=== PATIENT | female | born 1985 | race Caucasian/White ===

== ENCOUNTER 2018-08-10 15:55 | Inpatient (IN) | payer OTHER ==
[2018-08-10 17:02] VITALS: BMI 28.6
[2018-08-10] MEDS ORDERED: Lactated Ringer's 1,000 ML IV ONE ×3 (17:20→20:10)
[2018-08-10] MEDS ORDERED: OXYTOCIN/0.9 % NS 20 UNIT/1,000 ML BAG IV ONE (17:22)
[2018-08-10] MEDS ORDERED: Oxytocin 30 UNIT in NS 500 ml 30 UNITS/500 ML BAG IV ONE ×2 (17:45→19:19)
[2018-08-10 18:19] LABS: BASO % 0.1 % (0.0-2.0); EOS % 0.3 % (0.0-4.0); HEMOGLOBIN 10.8 g/dL (12.0-16.0); LYMPH # 1.3 K/uL (1.0-4.3); LYMPH % 23.4 % (20.0-40.0); MEAN CELL VOLUME 82.7 fl (81.0-99.0); MEAN CORPUSCULAR HGB CONC 32.7 g/dL (33.0-37.0); MEAN PLATELET VOLUME 8.7 fl (7.2-11.7); MONO # 0.5 K/uL (0.0-0.8); MONO % 9.4 % (0.0-10.0); NEUT # 3.7 K/uL (1.8-7.0); NEUT % 66.8 % (50.0-75.0); NRBC % 0.1 % (0.0-0.0); RED CELL DISTRIBUTION WIDTH 16.3 % (11.5-14.5); WHITE BLOOD COUNT 5.5 K/uL (4.8-10.8)
[2018-08-10] MEDS ORDERED: Fentanyl/Bupivacaine HCl 250 ML EPI ONE (20:12)
[2018-08-10] MEDS ORDERED: Bupivacaine HCl 0.5% PF (30 ml) Inj ONE (20:28)
--- NOTE | 2018-08-10 22:58 | OBPN ---
Datetime: 08/10/2018 22:48 IP Progress Impression: Normal progression of labor; Reassuring heart rate IP Procedures: Artificial ROM; Sterile Vag Exam IP Progress Plan: Continue present management; Augmentation Membranes, Provider: Intact Amniotic Fluid Color, Provider: Clear FHR - Baseline A Provider: 120 Gestation - Est Wks by US: 40.6 Presentation-Admit: Vertex IP Progress Note Comment: Patient is s/p epidural and is comfortable Membranes ruptured artificially with clear fluid. Plan: Will augment with Pitocin Monitor the progress of labor. Vital Signs Provider: Reviewed NICHD Accel Fetus A IP Provider: [id number] FHR Category Provider Fetus A: Category I NICHD Variability Prov Fetus A: Moderate 6-25bpm Dilatation, Provider: 4 Effacement, Provider: 60 Station, Provider: -2 NICHD Decel Fetus A IP Provider: None
[2018-08-11] MEDS ORDERED: Lidocaine Hydrochloride 10 ML INJ ONE ×2 (02:11→09:12)
[2018-08-11] MEDS ORDERED: Lactated Ringer's 1,000 ML IV ONE (06:31)
[2018-08-11] MEDS ORDERED: Benzocaine/Menthol SPRAY TOP PRN ×2 (10:44→14:48)
[2018-08-11] MEDS ORDERED: Oxycodone/Acetaminophen 5/325 mg Tab PO PRN ×2 (10:44→14:48)
[2018-08-12 06:48] LABS: BASO % 0.2 % (0.0-2.0); EOS % 0.3 % (0.0-4.0); HEMOGLOBIN 8.9 g/dL (12.0-16.0); LYMPH # 2.1 K/uL (1.0-4.3); LYMPH % 16.7 % (20.0-40.0); MEAN CELL VOLUME 84.3 fl (81.0-99.0); MEAN CORPUSCULAR HEMOGLOBIN 26.7 pg (27.0-31.0); MEAN CORPUSCULAR HGB CONC 31.7 g/dL (33.0-37.0); MEAN PLATELET VOLUME 8.9 fl (7.2-11.7); MONO # 0.7 K/uL (0.0-0.8); MONO % 5.3 % (0.0-10.0); NEUT # 9.8 K/uL (1.8-7.0); NEUT % 77.5 % (50.0-75.0); NRBC % 0.1 % (0.0-0.0); RBC 3.32 Mil/uL (3.80-5.20); RED CELL DISTRIBUTION WIDTH 16.4 % (11.5-14.5)
[2018-08-12 07:00] LABS: WHITE BLOOD COUNT 12.6 K/uL (4.8-10.8)
--- NOTE | 2018-08-12 15:25 | OBDS ---
DELIVERY PERSONNEL Delivery Doctor: Brant Guerrier MD Scrub Nurse: Teodora Cotton Brazing Machine Tender: Daisha Vasquez RN Anesthesiologist: Dr. Oquendo MATERNAL INFORMATION Delivery Anesthesia: Local; Epidural Medications in Delivery: Pitocin 30 units Provider Comments: Patient was fully dilated and was pushing.Patient pushed for more than 2 hours an d was exhausted. SVE: 10/100/+3 A kiwi vacuum assistance device was applied to the babys head and baby was delivered after a pull through a right mediolateral episiotomy. Position of head: Occipito-anterior. There was no pop off. A brief resistance was felt after the delivery of the head with shoulder dystocia,and this r esponded after supra pubic pressure from the occupational therapist assistants. Baby delivered within 1 minute of delivery of head. weight: score: 4 in the first minute and 7 in the 5th minute. The right mediolateral episiotomy was repaired under epidural anesthesia and local anesthesia with 1% lidocaine. Patient tolerated the procedure well. LABOR SUMMARY EDC: 08/04/2018 00:00 No. Babies in Womb: 1 Attempted: n/a Labor Anesthesia: Epidural LABOR INFORMATION Reason for Induction: Not Applicable Onset of Labor: 08/10/2018 15:00 Complete Dilatation: 08/11/2018 05:18 Oxytocin: Induction Group B Beta Strep: Negative (Annotations: 07/04/2018) Steroids Given: None Reason Steroids Not Administered: Not Applicable MEMBRANES Membranes Rupture Method: Artificial Rupture of Membranes: 08/10/2018 22:00 Length of Rupture (hrs): 10.85 Amniotic Fluid Color: Clear Amniotic Fluid Amount: Moderate Amniotic Fluid Odor: Normal STAGES OF LABOR Stage 1 hrs: 14 Stage 1 min: 18 Stage 2 hrs: 3 Stage 2 min: 33 Stage 3 hrs: 0 Stage 3 min: 9 Total Time in Labor hrs: 18 Total Time in Labor min: 0 BABY A INFORMATION Delivery Date/Time: 08/11/2018 08:51 Method of Delivery: Vaginal Born in Route : No : N/A Forceps: N/A Vacuum Extraction: Successful Shoulder Dystocia : Yes SHOULDER DYSTOCIA BABY A Delivery of Head: 08/11/2018 08:49 Infant Delivery Date/Time: 08/11/2018 08:51 Time Head to Delivery : 2.0 1st Intervention to Resolve: Episiotomy 2nd Intervention to Resolve: McRobert's Maneuver 3rd Intervention to Resolve: Suprapubic Pressure Verify NO Fundal Pressure: No Fundal Pressure Applied PRESENTATION/POSITION BABY A Presentation: Cephalic Cephalic Presentation: Vertex Breech Presentation: N/A PLACENTA INFORMATION BABY A Placenta Delivery Time : 08/11/2018 09:00 Placenta Method of Delivery: Spontaneous Placenta Status: Delivered SCORES BABY A Heart Rate 1 min: >100 bpm Resp Effort 1 min: Absent Reflex Irritability 1 min: No Response Muscle Tone 1 min: Some Flexion of Extremities Color 1 min: Body [place], Extremities Blue Resuscitation Effort 1 min: Tactile Stimulation; PPV/NCPAP SCORE 1 MIN: 4 Heart Rate 5 min: >100 bpm Resp Effort 5 min: Good Cry Reflex Irritability 5 min: Grimace Muscle Tone 5 min: Some Flexion of Extremities Color 5 min: Body [place], Extremities Blue Resuscitation Effort 5 min: Tactile Stimulation; PPV/NCPAP SCORE 5 MIN: 7 INFORMATION BABY A Gestational Age at Delivery: 41.0 Gestational Status: Term Infant Outcome : Liveborn Condition : Fair Infant Sex: Male IDENTIFICATION/MEDS BABY A ID Band Number: [id number] CORD INFORMATION BABY A No. Cord Vessels: 3 Infant Suction: None ASSESSMENT BABY A Infant Complications: Shoulder Dystocia Physical Findings at Delivery: Caput Succedaneum; Molding of the Head Infant Respirations: Appears Normal Resident Engineer/ALS Called : No Care By: Dr. Bobo WGrimRN Transferred To: [facility]
--- NOTE | 2018-08-12 15:25 | OBHP ---
Datetime: 08/10/2018 17:00 IP Admit Plan: Admit to unit; Initiate labor protocol (Annotations: Data stored by CPN on behalf of user) Admit Comment, IP Provider: 33 y/o @ 40.6 w/SARAH of 08/11/2018 sent here for induction of labor. Pt reports ctx since 3pm this afternoon but denies any vb, loss of fluid. She endorses +FM. Denies f/ c/n/v/cp/lightheadedness. OBGYNhx: chlamydia treated 02/01/2018; RAVINDER neg 07/04/2018 PMH: denies Meds: PNV Surghx: denies Sochx: denies EtOH, cigaretter or elicit drug use ROS: 12 points reviewed and neg unless otherwise mentioned in HPI VS: reviewed and are neg unless otherwise mentioned in HPI PE: Cardio: s1s2 RRR Lungs: cta b/l no wheeze Abd: gravid, nontender, no rigidity, no guarding Pelvic: 3-4cm, 60%, -2 Ext: nonedematous A/P: 33 y/o , clinically stable, @ 40.6 w/SARAH of 08/11/2018 sent here for induction of labor. -Pelvic: 3-4, 60%, -2 -Admit unit -Initiate labor protocol -Kavita Castillo, PGy-1 Patient seen and examined with Dr. Guerrier Attending Note: patient was seen and evaluated with resident and I agree with the above assessment. Gestation - Est Wks by US: 40.6 IP Hx Assessment: The History has been Reviewed and is Current Vital Signs Provider: Reviewed; Within Normal Limits Dilatation, Provider: 3-4 Effacement, Provider: 60 Station, Provider: -2
--- NOTE | 2018-08-13 12:14 | OBPPN ---
Datetime: 08/13/2018 05:56 PP Pain Prov: Within normal limits PP Nausea Prov: Denies PP Flatus Prov: Yes PP BM Prov: No PP Heart Prov: Normal PP Lungs Prov: Normal PP Lochia Prov: Normal PP Extremities Prov: Normal PP C/S Incision Prov: Not Applicable PP Progress Prov: Normal PP Comments Phys Exam Prov: Gen: NAD HEENT: NCAT Cardio: + S1S2, RRR Lungs: CTA B/L, no wheezes, rales or rhonchi Abd: soft, appropriate tenderness to palpation, + BS heard throughout, UB firm below level of umbi licus Ext: No edema, calves non tender PP Impression Prov: Normal progression PP Plan Prov: Discharge PP Progress Note Prov: Voyce: [id number] Pt is a 33 yo , PPD 2 s/p on 08/11/18 was seen and examined at bedside this AM. Kayla nt has no complaints, pain controlled well with medication. Patient is ambulating w.o difficulty. Pt is and bottle feeding. Pt is tolerating regular PO diet. Lochia like menses. +Flatus, - BM. Denies fevers, chills, dizziness, chest pain, SOB, nausea, vomiting, diarrhea or dysuria. VS: wnl Gen: NAD HEENT: NCAT Cardio: + S1S2, RRR Lungs: CTA B/L, no wheezes, rales or rhonchi Abd: soft, appropriate tenderness to palpation, + BS heard throughout, UB firm below level of umbi licus Ext: No edema, calves non tender H _ H: aCBC: 10.8/33.1, pCBC: 8.9/28.0 Assessment: Pt is a 33 yo , PPD 2 s/p on 08/11/18, clinically stable Plan: -Discharge home today - and ambulation encouraged. 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
--- NOTE | 2018-08-13 12:14 | OBDCSUM ---
Datetime: 08/13/2018 05:59 Discharged to, Provider: Home Follow up at, Provider: [facility] Disch Instr Activity: Normal activity Disch Instr Diet: Regular Discharge Instructions, Provider: Routine instructions given Discharge Diagnosis, Provider: Term Delivered Discharge Time: 08/13/2018 05:59 Follow up in weeks, Provider: 4-6 week post , 2-3 days Contraception discussed, Prov: Yes Disch Activity Restrictions: No lifting; Minimize stair-climbing; No sexual activity; Nothing in vag meme - [place], tampons, douche Discharge Comment, Provider: Ob Discharge Summary DOA: 08/10/18 EGA: 40.6 wks. Diagnosis: IOL, Delivered term M infant baby still in nursery risk factors: None Summary of : . L_D summary: DOD: 08/10/18 Infant @8:51 after pushing for 2 hours, shoulder dystocia, vacuum assist, nuchal cord x3, Medio lateral ep isiotomy NB: M : 4/7 transferred to nursery Weight: 3835g summary: No complications with mom during period, pain controlled lochia<menses. CBC : 8.9/28.0 Blood type: O+ DISCHARGE DATA D/C DATE: 08/13/18 TIME: 8:00 AM DISCHARGE INSTRUCTIONS: - and ambulation encouraged. 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
[2018-08-14 09:37] VITALS: BP 119/78; PULSE 88; RESP 20; TEMP 98.4; O2SAT 99
== END 2018-08-13 17:50 | disposition home or self-care (01) | DRG 373 ==
LOC: H.EROB2 15:55 → H.L&D 17:20 → H.OB/GYN 08-11 13:00
PROVIDERS: ADMIT Obstetrics & Gynecology; ATTEND Obstetrics & Gynecology
PROC: 4A1HXCZ Monitoring of Products of Conception, Cardiac Rate, External Approach (ICD-10-PCS; 2018-08-10)
PROC: 0W8NXZZ Division of Female Perineum, External Approach (ICD-10-PCS; principal; 2018-08-11)
PROC: 10E0XZZ Delivery of Products of Conception, External Approach (ICD-10-PCS; 2018-08-11)
DX: O69.81X0 Labor and delivery complicated by cord around neck, without compression, not applicable or unspecified (principal); Z37.0 Single live birth; Z3A.41 41 weeks gestation of pregnancy; O66.0 Obstructed labor due to shoulder dystocia